=== PATIENT | male | born 1985 | race Caucasian/White ===

== ENCOUNTER 2021-11-11 15:10 | Emergency (ER) | payer OTHER ==
[2021-11-11 15:16] VITALS: TEMP 97.8; BMI 34.7
[2021-11-11] MEDS ORDERED: IBUPROFEN 400 MG TABLET (FP) PO ONE ×2 (15:39→16:10)
[2021-11-11 17:10] LABS: BASO % 0.1 % (0-2.0); EOS % 0.5 % (0-4.5); HEMATOCRIT 44.8 % (35.4-49); HEMOGLOBIN 15.1 GM/dL (11.7-16.9); LYMPH % 11.2 % (8-40); MCH 30.4 pg (25.7-33.7); MCHC 33.8 g/dl (32.0-35.9); MEAN CELL VOLUME 89.9 fl (80-96); MEAN PLT VOLUME 8.6 fl (7.5-11.1); MONO % 3.8 % (3.8-10.2); NEUT % 84.4 % (42.8-82.8); PLATELET COUNT 259 10^3/uL (134-434); RBC 4.98 M/mm3 (4.00-5.60); WHITE BLOOD COUNT 13.2 K/mm3 (4.0-10.0)
[2021-11-11 17:12] LABS: EPI CELLS 9 /uL (0-25.1); HYALINE CASTS 3 /uL (0-3.1); URINE APPEARANCE CLEAR; URINE BACTERIA 19 /uL (0-1359); URINE BILIRUBIN NEGATIVE (NEGATIVE); URINE COLOR YELLOW; URINE GLUCOSE (UA) NEGATIVE (NEGATIVE); URINE KETONE TRACE (NEGATIVE); URINE LEUK ESTERASE NEGATIVE (NEGATIVE); URINE NITRITE NEGATIVE (NEGATIVE); URINE PROTEIN TRACE (NEGATIVE); URINE RBC 90 /uL (0-23.9); URINE UROBILINOGEN 0.2 mg/dL (0.2-1.0); URINE WBC 9 /uL (0-25.8)
[2021-11-11 17:34] LABS: BLOOD UREA NITROGEN 16.3 mg/dL (7-18); CALCIUM 9.8 mg/dL (8.5-10.1)
[2021-11-11 17:35] LABS: ALBUMIN 4.4 g/dl (3.4-5.0)
[2021-11-11 17:39] LABS: BILIRUBIN,TOTAL 0.5 mg/dL (0.2-1)
[2021-11-11 20:46] VITALS: BP 122/68; PULSE 70
== END 2021-11-11 20:52 | disposition home or self-care (01) ==
LOC: JER 15:10
DX: N20.0 Calculus of kidney (principal); N23 Unspecified renal colic; R31.29 Other microscopic hematuria
CPT/HCPCS: 36415; 74176-TC; 80053; 81003; 83690; 85025; 87086; 87186; 99285-25; C9803; U0003; U0005